=== PATIENT | female | born 1980 | race Caucasian/White ===

== ENCOUNTER 2018-10-08 22:19 | Emergency (ER) | payer OTHER, SELFPAY ==
[2018-10-08 23:07] VITALS: BP 150/88; PULSE 70; RESP 20; TEMP 36.3; O2SAT 98; BMI 30.7
[2018-10-08 23:17] VITALS: BP 150/88; PULSE 70; RESP 20; TEMP 36.3; O2SAT 98; BMI 30.7
--- NOTE | 2018-10-08 23:27 | ED.WOUNDLAC ---
HPI - Wound/Laceration General Chief Complaint: Wound/Laceration Stated Complaint: DOG BITES TO LT FINGER, RT FOREARM Time Seen by Provider: 10/08/18 22:31 Source: patient Mode of arrival: ambulatory Limitations: no limitations History of Present Illness HPI narrative: 38-year-old female nonsmoker presents with a chief complaint of a dog bite to left index finger and right forearm just prior to arrival. Patient states it was her dog who is fully immunized and can be monitored for some time if needed. Patient has full range of motion denies any numbness, tingling or weakness. She cleaned it with hydrogen peroxide immediately Onset (ago): minute(s) Place: home Patient tetanus UTD: No Context: accidental Associated symptoms: pain Treatments prior to arrival: bandage Related Data Previous Rx's Medication Instructions Recorded amoxicillin-pot clavulanate 1 tab PO BID #20 tab 10/09/18 [Augmentin] Allergies Allergy/AdvReac Type Severity Reaction Status Date / Time No Known Drug Allergies Allergy Verified 10/08/18 23:49 Review of Systems Constitutional Denies chills, Denies fever(s), Denies lethargy and Denies weakness Eyes Denies change in vision, Denies eye discharge, Denies irritation and Denies loss of vision ENT Ears, Nose, Mouth, and Throat: Denies change in voice, Denies neck pain and Denies sore throat Cardiovascular Denies chest pain, Denies irregular heart rhythm, Denies lightheadedness, Denies palpitations, Denies dyspnea, Denies dyspnea on exertion and Denies orthopnea Respiratory Denies cough, Denies dyspnea, Denies dyspnea on exertion and Denies wheezing Gastrointestinal Gastrointestinal: Denies abdominal pain, Denies change in bowel habits, Denies diarrhea, Denies nausea and Denies vomiting Genitourinary Denies hematuria, Denies flank pain, Denies urinary incontinence and Denies urinary urgency Musculoskeletal Denies neck pain Integumentary/Breasts Denies pruritus, Denies erythema, Denies rash and Reports wounds Neurologic Denies confusion, Denies loss of vision and Denies weakness Psychiatric Denies anxiety, Denies confusion, Denies depression, Denies homicidal ideation and Denies suicidal ideation Endocrine Denies palpitations Hematologic/Lymphatic Denies easy bruising Allergic/Immunologic Denies wheezing PFSH Social History Smoking Status: Never smoker Social History Smoking Status: Never smoker Exam Narrative Exam Narrative: GEN: AOx3 and in mild distress EYES: Pupils are equal, round, and reactive to light and accommodation. Extraoccular muscles are intact bilaterally. There is no subconjunctival hemorrhage or exudate. CHEST: Lungs are clear to auscultation bilaterally and free of wheezes, rales, or rhonchi. Heart rate is regular rhythm, there are no murmurs, clicks, rubs, or gallops. There is no chest wall tenderness. ABD: Abdomen is soft and nontender. There is no guarding or rebound. Bowel sounds are normal in all 4 quadrants. There is no mass or organomegaly. EXT: Full painless ROM of all extremities with no loss of sensation or strength. SKIN: 2 cm her regular flap laceration on dorsum of left index finger, patient has full strength and range of motion, no active bleeding and no tendon involvement. This is viewed in a bloodless field. There are multiple puncture wounds on the right forearm and a decent size hematoma on the volar aspect of mid forearm. One laceration approximately 1 cm as a small trickle of active bleeding will need to be repaired as it is gaping Initial Vital Signs Initial Vital Signs: Vital Signs Temperature 97.3 F L 10/08/18 23:07 Pulse Rate 70 10/08/18 23:07 Respiratory Rate 20 10/08/18 23:07 Blood Pressure 150/88 H 10/08/18 23:07 Pulse Oximetry 98 10/08/18 23:07 Procedures Laceration Repair Laceration 1: Site: hand Side (If applicable): left Size (cm): 2 Description: flap Depth: simple, single layer Local Anesthetic: lidocaine 1% and with bicarb Amount of anesthesia used (mL): 3 Pre-repair: wound explored, irrigated extensively and deep structures intact Skin layer closed with: nylon Size (cm): 5-0 Number of sutures: 4 Technique: simple, interrupted Laceration 2: Site: upper extremity Side (If applicable): right Size (cm): 1 Description: linear and clean Depth: simple, single layer Local Anesthetic: lidocaine 1% and with bicarb Amount of anesthesia used (mL): 2 Pre-repair: wound explored Skin layer closed with: nylon Size (cm): 4-0 Number of sutures: 1 Course Orders Ordered: Discontinued Medications Amoxicillin/Clavulanate Potassium (Augmentin 875-125 Mg) 1 tab PO NOW ONE Stop: 10/08/18 23:35 Last Admin: 10/08/18 23:48 Dose: 1 tab Diphtheria/Tetanus/Acell Pertussis (Adacel) 0.5 ml IM .ONCE ONE Stop: 10/08/18 23:34 Last Admin: 10/08/18 23:48 Dose: 0.5 ml Vital Signs - 8 hr 10/08/18 23:07 10/08/18 23:17 Temperature 97.3 F L 97.3 F L Pulse Rate 70 70 Respiratory Rate 20 20 Blood Pressure 150/88 H 150/88 H Pulse Oximetry 98 98 Discharge Plan Departure Patient Disposition: Home Clinical Impression: Laceration Dog bite Qualifiers: Encounter type: initial encounter Qualified Code(s): W54.0XXA - Bitten by dog, initial encounter Discharge Date/Time: 10/09/18 02:10 Interventions: ED Discharge Assessment Last Done: 10/09/18 02:10 Instructions: DI for Laceration Repair, DI for Puncture Wound Activity Restrictions/Additional Instructions: *You have been diagnosed with [left index finger dog bite and laceration with suture repair, right forearm hematoma and puncture wound] *What to do: *Take medications as directed *Follow up with your primary care provider in 2-3 days, call for an appointment. Let them know you were seen in the Emergency Department and that we ask that you be seen in follow up *Return to ER if you should have any new, worsening or concerning symptoms, such as [worsening pain, swelling or fever, shaking chills or other bothersome symptoms Please keep the wound clean and dry to the best of your ability. Please monitor for signs of infection such as redness to the skin or increasing pain. Have the sutures removed by your doctor in about 7 days. If you are unable to get into your doctor, we would be happy to remove the sutures in that same timeframe. ] Prescriptions: New amoxicillin-pot clavulanate [Augmentin] 875-125 mg tablet 1 tab PO BID Qty: 20 RF: 0 Stand Alone Forms: Work Release Note
--- NOTE | 2018-10-08 23:33 | DI.RAD.S_ITS ---
PROCEDURE: XR FOREARM RT 2V INDICATIONS: dog bite, significant swelling TECHNIQUE: 2 views of the forearm were acquired. COMPARISON: None. FINDINGS: Bones: No fractures or dislocations. No suspicious bony lesions. Soft tissues: No suspicious soft tissue calcifications or masses. Soft tissue swelling and small foci of subcutaneous gas. IMPRESSION: No osseous abnormality or radiopaque foreign body. Soft tissue swelling and small foci of subcutaneous gas. Dictated by: Agata Watkins M.D. on 10/09/2018 at 8:39 Approved by: Agata Watkins M.D. on 10/09/2018 at 8:41
[2018-10-08] MEDS: TET,DIPH,PERTUSS(ACELL),VAC/PF 0.5 ML SYRINGE IM (23:48)
[2018-10-08] MEDS: AMOXICILLIN/CLAV 875/125 MG 1 TAB PO (23:48)
[2018-10-09 01:00] VITALS: BP 154/76; PULSE 72; O2SAT 100
[2018-10-09 01:54] VITALS: BP 116/72; PULSE 74; RESP 15; O2SAT 100
--- NOTE | 2018-10-09 01:54 | PC.NURSE ---
A padded aluminum finger splint applied to left index finger after suturing and gauze dressing,she stated it sure feels a lot better nowtelfa and gauze dressing to puncture wounds on rfa,steri strips applied to #2 puncture wounds before dressing.
== END 2018-10-09 02:10 | disposition home or self-care (01) ==
PROVIDERS: Emergency Provider Emergency Medicine
DX: S61.251A Open bite of left index finger without damage to nail, initial encounter (principal); S51.851A Open bite of right forearm, initial encounter; W54.0XXA Bitten by dog, initial encounter; Z23 Encounter for immunization
CPT/HCPCS: 12002; 29130; 73090; 90471; 99283; 99284; 90715

== ENCOUNTER → 2020-05-27 11:58 | Outpatient (CLI) | payer OTHER, SELFPAY ==
--- NOTE | 2020-05-27 12:00 | DI.MRI.S_ITS ---
PROCEDURE: MR HEAD/BRAIN WO CON INDICATIONS: Dizziness and giddiness TECHNIQUE: Noncontrast axial T1 spin echo, axial T2 fast spin echo, sagittal and axial FLAIR, coronal T2 fast spin echo, axial gradient echo, axial diffusion and ADC through the brain. COMPARISON: None. FINDINGS: Image quality: Excellent. CSF Spaces: Basal cisterns are patent. No extra-axial fluid collections. Ventricles are normal in size and shape. Brain: No intracranial masses or hemorrhage. Pittman/white matter interface is normal. Brainstem appears normal. Diffusion-weighted images demonstrate no acute ischemic insult. No chronic ischemic insults. Normal intravascular flow voids are present. Skull and face: Calvarium has normal marrow signal. Orbits appear normal. Sinuses: Sinuses and mastoids are clear. IMPRESSION: Negative examination. Dictated by: Leonides Worthington M.D. on 05/27/2020 at 13:18 Approved by: Leonides Worthington M.D. on 05/27/2020 at 13:47
== END ==
PROVIDERS: Referring Provider Psychiatry & Neurology Neurology; Visit Provider Psychiatry & Neurology Neurology
DX: R42 Dizziness and giddiness (principal); G43.909 Migraine, unspecified, not intractable, without status migrainosus
CPT/HCPCS: 70551

== ENCOUNTER → 2021-02-10 15:29 | Outpatient (CLI) | payer OTHER, SELFPAY ==
--- NOTE | 2021-02-10 | DI.MRI.S_ITS ---
PROCEDURE: MR HEAD/BRAIN WO CON INDICATIONS: Migraine with aura, not intractable, without statu TECHNIQUE: Noncontrast axial T1 spin echo, axial T2 fast spin echo, sagittal and axial FLAIR, coronal T2 fast spin echo, axial gradient echo, axial diffusion and ADC through the brain. COMPARISON: [facility], MR, MR HEAD/BRAIN WO CON, 05/27/2020, 12:01. FINDINGS: Image quality: Excellent. CSF Spaces: Basal cisterns are patent. No extra-axial fluid collections. Ventricles are normal in size and shape. Brain: No intracranial hemorrhage, mass, or mass effect. Pittman/white matter interface is preserved. No suspicious white matter lesions. Brainstem appears normal. Diffusion-weighted images demonstrate no acute infarcts. Normal intravascular flow voids are present. Skull and face: Calvarium has normal marrow signal. Orbits appear normal. Sinuses: Sinuses and mastoids are clear. IMPRESSION: 1. No acute intracranial abnormality. Dictated by: Librado Elder M.D. on 02/10/2021 at 16:03 Approved by: Librado Elder M.D. on 02/10/2021 at 16:05
== END ==
PROVIDERS: Referring Provider Psychiatry & Neurology Neurology; Visit Provider Psychiatry & Neurology Neurology
DX: G43.109 Migraine with aura, not intractable, without status migrainosus (principal)
CPT/HCPCS: 70551